=== PATIENT | female | born 1965 | race American Indian/Alaskan Native ===

== ENCOUNTER 2018-07-27 10:10 | Inpatient (IN) | payer MEDICAID ==
[2018-07-27] MEDS ORDERED: Morphine 4 mg/ml ISec IVP STA ×2 (10:32→12:48)
--- NOTE | 2018-07-27 10:36 | ED PDOC ---
Arrival/HPI - General Chief Complaint: Abdominal Pain Time Seen by Provider: 07/27/18 10:11 Historian: Patient - History of Present Illness Narrative History of Present Illness (Text): 07/27/18 10:31 53 year old female, whose past medical history includes pancreas divisum, tubal ligation, cyst removal, and stent placement on pancreas, presents to the emergency department complaining of constant right upper abdominal pain assoc iated with nausea, vomiting, and diarrhea for the past week. Patient also reports she lost a lot of weight, but denies any fever, chills, chest pain, shortness of breath, urinary symptoms, back pain, neck pain, headache, dizziness, or any other complaints. PMD or GI: None Time/Duration: 1 week Symptom Onset: Sudden Symptom Course: Unchanged Activities at Onset: Light Context: Home Past Medical History - Provider Review Nursing Documentation Reviewed: Yes - Reproductive Menopause: Yes - Cardiac Hx Hypertension: Yes - Gastrointestinal Other/Comment: pancreatic divisum - Psychiatric Hx Substance Use: No - Surgical History Other/Comment: Ovarian cyst removal Family/Social History - Physician Review Nursing Documentation Reviewed: Yes Family/Social History: No Known Family HX Smoking Status: Light Smoker < 10 Cigarettes Daily Hx Alcohol Use: No Hx Substance Use: No Allergies/Home Meds Allergies/Adverse Reactions: Allergies acetaminophen [From Tylenol] Allergy (Verified 07/27/18 10:20) ANAPHYLAXIS NSAIDS (Non-Steroidal Anti-Inflamma Allergy (Verified 07/27/18 10:20) ANGIOEDEMA Home Medications: Home Meds Medication Instructions Recorded Confirmed RX: Lisinopril [Zestril] 20 mg PO DAILY 07/27/18 07/27/18 Review of Systems - Physician Review All systems were reviewed & negative as marked: Yes - Review of Systems Constitutional: Weight Change. absent: Fevers, Other (Chills) Respiratory: absent: SOB Cardiovascular: absent: Chest Pain Gastrointestinal: Abdominal Pain, Diarrhea, Nausea, Vomiting Genitourinary Female: absent: Dysuria, Frequency, Hematuria Musculoskeletal: absent: Back Pain, Neck Pain Neurological: absent: Headache, Dizziness Physical Exam - Physical Exam Narrative Physical Exam (Text): Gen: VS reviewed, alert, well developed, well nourished, nontoxic, mild distress. ENT: normal pharynx. Eye: EOMI, PERRL. Neck: no JVD, supple, no adenopathy. CV: regular rate, regular rhythm, no rubs, no murmur, no gallops, S1, S2, pulses equal and strong. Pulm: no distress, clear to auscultation, no wheeze, no rhonchi, breath sounds equal, no rales. Abd: mild to moderate RUQ tenderness with some guarding, no rebound, no rigidity, normal bowel sounds. Ext: no edema. Skin: good color, no rash, no cyanosis. Psych: responds appropriately to questions, normal affect. Neuro: oriented x 3, CN2-12 intact grossly, motor intact, sensation intact. Vital Signs Reviewed: Yes Vital Signs Temp Pulse Resp BP Pulse Ox 07/27/18 10:18 97.7 F 76 18 163/113 H 98 Temperature: Afebrile Blood Pressure: Hypertensive Pulse: Regular Respiratory Rate: Normal Medical Decision Making ED Course and Treatment: 07/27/18 10:35 Impression: 53 year old female presents complaining of right upper quadrant abdominal pain associated with nausea, vomiting, and diarrhea for the past week. Plan: -- CT Abdomen and pelvis PO and IV Contrast -- EKG -- Labs -- Morphine, IV Fludis, Zofran Inj -- Reassess and disposition Progress Notes: 07/27/18 14:[address] Duran who is aware and agrees with the plan. Accepts patient into hospitalist service for continued abdominal pain and work up for potential pancreatic obstruction of stent. - Lab Interpretations I have reviewed the lab results: Yes - RAD Interpretation Narrative RAD Interpretations (Text): PROCEDURE: CT Abdomen and Pelvis with contrast Dictator : Elena Marquez MD Report Date : 07/27/2018 14:19:52 IMPRESSION: Mild intrahepatic biliary ductal dilatation. Moderate dilatation of the common bile duct and pancreatic duct. No bulky pancreatic head or periampullary mass. Scattered punctate pancreatic calcifications likely related to chronic pancreatitis. Scattered colonic diverticulosis. Apparent mild mural thickening of the left hemicolon is nonspecific and could be related to underdistention however acute nonspecific infectious/inflammatory colitis is also a consideration. Clinical follow-up is advised. No bowel dilatation or obstruction. Mild hepatomegaly and fatty liver. No cholelithiasis. Maintenance Analyst: Radiologist - EKG Interpretation EKG Interpretation (Text): 07/27/18 10:38 NSR @ 78 bpm, nml qrs, nml axis, no acute sttw abn. Interpreted by ED Physician: Yes Type: 12 lead EKG - Scribe Statement The provider has reviewed the documentation as recorded by the Swapnilibe Miley Merida Provider Scribe Attestation: All medical record entries made by the Scribe were at my direction and personally dictated by me. I have reviewed the chart and agree that the record accurately reflects my personal performance of the history, physical exam, medical decision making, and the department course for this patient. I have also personally directed, reviewed, and agree with the discharge instructions and disposition. Disposition/Present on Arrival - Present on Arrival Any Indicators Present on Arrival: No History of DVT/PE: No History of Uncontrolled Diabetes: No Urinary Catheter: No History of Decub. Ulcer: No History Surgical Site Infection Following: None - Disposition Have Diagnosis and Disposition been Completed?: Yes Diagnosis: Abdominal pain, Presence of pancreatic duct stent Disposition: HOSPITALIZED Disposition Time: 14:40 Patient Plan: Admission Patient Problems: Current Active Problems Problem Status Onset Abdominal pain Acute Presence of pancreatic duct stent Acute Condition: STABLE
[2018-07-27] MEDS: Sodium Chloride 0.9% 1,000 ML IV SCH ×3 (10:51→23:31)
[2018-07-27] MEDS ORDERED: Iohexol 240 (50 ml) ONE (11:24)
[2018-07-27 11:56] LABS: ALB/GLOB RATIO 1.2 (1.1-1.8); ALBUMIN 4.6 g/dL (3.0-4.8); ALT/SGPT 19 U/L (7-56); AST/SGOT 21 U/L (14-36); BASO # 0.04 K/mm3 (0.0-2.0); BASO % 0.7 % (0.0-3.0); BLOOD UREA NITROGEN 8 mg/dL (7-21); CALCIUM 9.8 mg/dL (8.4-10.5); EOS # 0.1 (0.0-0.7); EOS % 2.3 % (1.5-5.0); GFR NON-AFRICAN AMERICAN > 60; GRAN # 3.2 (1.4-6.5); GRAN % 56.4 % (50.0-68.0); HEMOGLOBIN 14.2 g/dL (12.0-16.0); LIPASE 130 U/L (23-300); LYMPH # 2.1 (1.2-3.4); LYMPH % 36.6 % (22.0-35.0); MEAN CELL VOLUME 89.8 fl (80.0-105.0); MEAN CORPUSCULAR HEMOGLOBIN 30.1 pg (25.0-35.0); MEAN CORPUSCULAR HGB CONC 33.6 g/dl (31.0-37.0); MEAN PLATELET VOLUME 10.7 fl (7.0-11.0); MONO # 0.2 (0.1-0.6); RBC 4.71 10^6/uL (3.5-6.1); RED CELL DISTRIBUTION WIDTH 13.1 % (11.5-14.5); WHITE BLOOD COUNT 5.7 10^3/uL (4.5-11.0)
[2018-07-27 12:07] LABS: TROPONIN I < 0.01 ng/mL
[2018-07-27] MEDS ORDERED: Iohexol 350 MG/100 ML VIAL ONE (13:50)
--- NOTE | 2018-07-27 14:23 | CT ---
Date of service: 07/27/2018 PROCEDURE: CT Abdomen and Pelvis with contrast HISTORY: RUQ pain, hx pancreatic stent COMPARISON: None available. TECHNIQUE: CT scan of the abdomen and pelvis was performed after administration of intravenous contrast. Oral contrast was administered. Coronal and sagittal reformatted images were obtained. Contrast dose: 100 mL Omnipaque 350 Radiation dose: Total exam DLP = 332.46 mGy-cm. This CT exam was performed using one or more of the following dose reduction techniques: Automated exposure control, adjustment of the mA and/or kV according to patient size, and/or use of iterative reconstruction technique. FINDINGS: LOWER THORAX: The visualized lungs are clear. LIVER: Mild hepatomegaly and fatty liver. No gross lesion. There is mild intrahepatic ductal dilatation. GALLBLADDER AND BILE DUCTS: Well distended. No calcified gallstones, wall thickening or pericholecystic fluid. There is mild dilatation of the common bile duct which measures 6 mm in diameter. PANCREAS: Normal in size with homogeneous enhancement. No gross lesion. There is diffuse dilatation of the pancreatic duct which measures 7 mm in diameter. There are scattered punctate pancreatic calcifications. SPLEEN: Normal in size and appearance. ADRENALS: No discrete nodule. KIDNEYS AND URETERS: Normal in size with homogeneous enhancement. No hydronephrosis. No solid mass. VASCULATURE: No aortic aneurysm. Aortic atherosclerotic calcifications are present. BOWEL: Evaluation of the bowel is limited in the absence of oral contrast. The small bowel loops are normal in caliber. There is scattered colonic diverticulosis. There is apparent mild mural thickening of the left hemicolon. No bowel dilatation or obstruction. No bowel wall thickening or obstruction. APPENDIX: Normal appendix. PERITONEUM: No free fluid. No free air. LYMPH NODES: No enlarged lymph nodes. BLADDER: Well distended and normal in appearance. REPRODUCTIVE: The uterus is normal in size. BONES: No acute fracture. Within normal limits for the patient's age. OTHER FINDINGS: None. IMPRESSION: Mild intrahepatic biliary ductal dilatation. Moderate dilatation of the common bile duct and pancreatic duct. No bulky pancreatic head or periampullary mass. Scattered punctate pancreatic calcifications likely related to chronic pancreatitis. Scattered colonic diverticulosis. Apparent mild mural thickening of the left hemicolon is nonspecific and could be related to underdistention however acute nonspecific infectious/inflammatory colitis is also a consideration. Clinical follow-up is advised. No bowel dilatation or obstruction. Mild hepatomegaly and fatty liver. No cholelithiasis.
[2018-07-27] MEDS ORDERED: Potassium Chloride 20 mEq ER Tab PO ONE (14:59)
--- NOTE | 2018-07-27 15:04 | CP.PCM.HP ---
<Juventino Scruggs - Last Filed: 07/27/18 16:25> History of Present Illness - History of Present Illness History of Present Illness: Juventino Scruggs, H&P for Dr. Catherine cc: n/v/d with abdominal pain x1 week duration Patient is a 53 year old female with PMHx of HTN, pancreatic divisum with pancreatic stent placement in 2004, tubal ligation, R-ovarian cyst removal, GI bleed, presented to the ED complaining of constant RUQ abdominal pain associated with nausea, vomiting, and diarrhea for the past week. In the ED, Vitals: T 97.7, HR 70, BP 163/113 RR 18 SaO2 98% (room air). Patient given morphine for pa in control, started on IV fluids, and given zofran for nausea. Patient's labs were unremarkable except for K 3.4. Troponins negative x1. Lipase negative. CT abdomen ordered. EKG showed NSR at [address] or T wave changes. Patient examined by the medical team. Patient last vomited yesterday, it was yellow in color. Diarrhea is 2-3 times a day. It is associated with abdominal pain x1 week duration. Pain is epigastric, RUQ, that radiates to the back. Denies fever, chills, chest pain, shortness of breath, urinary symptoms, back pain, neck pain, headache, dizziness, F/U/D. Denies sick contacts and recent travel hx. Patient said she was previously admitted to a hospital in [place], [place] or [facility] (patient does not remember) for similar complains approximately one month ago and was discharged after one day. A full 12 point ROS was conducted and unremarkable except as stated above. PMHx: pancreatic divisum with pancreatic stent placement in 2004, tubal ligation, R-ovarian cyst removal, GI bleed PSHx: pancreatic stent placement (2004), R-ovarian cyst removal SocialHx: light smoker, no EtOH, no rec drug use. Lives with nephew in [place]. Meds: Lisinopril Allergies: ASA and Tylenol FamHx: sister has breast and ovarian cancer, mother has HTN and DM, father has no medical hx. Present on Admission - Present on Admission Any Indicators Present on Admission: No History of DVT/PE: No History of Uncontrolled Diabetes: No Urinary Catheter: No Decubitus Ulcer Present: No Review of Systems - Review of Systems All systems: reviewed and no additional remarkable complaints except (as per HPI.) Past Patient History - Past Social History Smoking Status: Light Smoker < 10 Cigarettes Daily - CARDIAC Hx Hypertension: Yes - GASTROINTESTINAL Other/Comment: pancreatic divisum - PSYCHIATRIC Hx Substance Use: No - SURGICAL HISTORY Other/Comment: Ovarian cyst removal Meds Allergies/Adverse Reactions: Allergies Allergy/AdvReac Type Severity Reaction Status Date / Time acetaminophen [From Tylenol] Allergy ANAPHYLAXIS Verified 07/27/18 10:20 NSAIDS (Non-Steroidal Allergy ANGIOEDEMA Verified 07/27/18 10:20 Anti-Inflamma Physical Exam - Constitutional Appears: No Acute Distress - Head Exam Head Exam: ATRAUMATIC, NORMAL INSPECTION, NORMOCEPHALIC - Eye Exam Eye Exam: EOMI, Normal appearance, PERRL - ENT Exam ENT Exam: Mucous Membranes Moist, Normal Exam - Respiratory Exam Respiratory Exam: Clear to Auscultation Bilateral, NORMAL BREATHING PATTERN. absent: Rales, Rhonchi, Wheezes, Respiratory Distress - Cardiovascular Exam Cardiovascular Exam: REGULAR RHYTHM, +S1, +S2 - GI/Abdominal Exam GI & Abdominal Exam: Normal Bowel Sounds, Soft, Tenderness (Tender to deep palpation at epigastric and RUQ that radiates to back). absent: Firm, Guarding, Rebound, Rigid - Extremities Exam Extremities exam: Positive for: normal inspection, pedal pulses present. Negative for: tenderness - Skin Skin Exam: Dry, Intact, Normal Color, Warm Results - Vital Signs Recent Vital Signs: Last Vital Signs Temp 97.7 F 07/27/18 10:18 Pulse 69 07/27/18 12:48 Resp 17 07/27/18 12:48 BP 160/90 H 07/27/18 12:48 Pulse Ox 100 07/27/18 12:48 - Labs Result Diagrams: 07/27/18 11:00 07/27/18 11:00 Labs: Laboratory Results - last 24 hr 07/27/18 07/27/18 11:00 11:00 WBC 5.7 RBC 4.71 Hgb 14.2 Hct 42.3 MCV 89.8 MCH 30.1 MCHC 33.6 RDW 13.1 Plt Count 201 MPV 10.7 Gran % 56.4 Lymph % (Auto) 36.6 H [place] % (Auto) 4.0 Eos % (Auto) 2.3 Baso % (Auto) 0.7 Gran # 3.20 Lymph # (Auto) 2.1 [place] # (Auto) 0.2 Eos # (Auto) 0.1 Baso # (Auto) 0.04 Sodium 146 Potassium 3.4 L Chloride 111 H Carbon Dioxide 25 Anion Gap 13 BUN 8 Creatinine 0.6 L Est GFR ( Amer) > 60 Est GFR (Non-Af Amer) > 60 Random Glucose 88 Calcium 9.8 Total Bilirubin 0.3 AST 21 ALT 19 Alkaline Phosphatase 112 Troponin I < 0.01 Total Protein 8.5 H Albumin 4.6 Globulin 3.9 Albumin/Globulin Ratio 1.2 Lipase 130 Assessment & Plan - Assessment and Plan (Free Text) Assessment: Patient is a 53 year old female with PMHx of HTN, pancreatic divisum with pancreatic stent placement in 2004, tubal ligation, R-ovarian cyst removal, GI bleed, presented to the ED complaining of constant epigastric and RUQ abdominal pain associated with nausea, vomiting, and diarrhea for the past week. Patient will be evaluated by the medical team. Plan: Epigastric/RUQ abdominal pain with associated n/v/d with Hx of Pancreatic Divisum with stent placement - Protonix 40mg IVP daily - EtOH level - Urine drug screen - zofran prn - liquid diet - morphine 1 mg q6 prn - Lipase negative - CT A/P PO and IV Contrast: Mild intrahepatic biliary ductal dilatation. Moderate dilatation of the common bile duct and pancreatic duct. Scattered pancreatic calcifications likely related to chronic pancreatitis. No bowel dilatation or obstruction. No cholelithiasis. - GI consulted (Dr. Mullins), f/u recs. - Hx of pancreatic divisum with stent placement in 2004 Hypokalemia 2/2 vomiting/diarrhea - K 3.4 - repleted - monitor - trop negative x1 Hx of HTN - restarted home med Lisinopril 20 mg PO daily - BP elevated in ED - monitor GI ppx: PTX DVT ppx: SCD Dispo: monitor patient on the floor. Follow up recommendations from GI. Case was discussed and reviewed with Dr. Catherine. <Jonathan Catherine - Last Filed: 07/27/18 17:13> Results - Vital Signs Recent Vital Signs: Last Vital Signs Temp 97.7 F 07/27/18 10:18 Pulse 65 07/27/18 15:30 Resp 18 07/27/18 15:30 BP 152/85 H 07/27/18 15:30 Pulse Ox 100 07/27/18 15:30 - Labs Result Diagrams: 07/27/18 11:00 07/27/18 11:00 Labs: Laboratory Results - last 24 hr 07/27/18 07/27/18 07/27/18 11:00 11:00 11:00 WBC 5.7 RBC 4.71 Hgb 14.2 Hct 42.3 MCV 89.8 MCH 30.1 MCHC 33.6 RDW 13.1 Plt Count 201 MPV 10.7 Gran % 56.4 Lymph % (Auto) 36.6 H [place] % (Auto) 4.0 Eos % (Auto) 2.3 Baso % (Auto) 0.7 Gran # 3.20 Lymph # (Auto) 2.1 [place] # (Auto) 0.2 Eos # (Auto) 0.1 Baso # (Auto) 0.04 Sodium 146 Potassium 3.4 L Chloride 111 H Carbon Dioxide 25 Anion Gap 13 BUN 8 Creatinine 0.6 L Est GFR ( Amer) > 60 Est GFR (Non-Af Amer) > 60 Random Glucose 88 Calcium 9.8 Phosphorus 3.7 Magnesium 2.4 H Total Bilirubin 0.3 AST 21 ALT 19 Alkaline Phosphatase 112 Troponin I < 0.01 Total Protein 8.5 H Albumin 4.6 Globulin 3.9 Albumin/Globulin Ratio 1.2 Lipase 130 Alcohol, Quantitative 07/27/18 11:00 WBC RBC Hgb Hct MCV MCH MCHC RDW Plt Count MPV Gran % Lymph % (Auto) [place] % (Auto) Eos % (Auto) Baso % (Auto) Gran # Lymph # (Auto) [place] # (Auto) Eos # (Auto) Baso # (Auto) Sodium Potassium Chloride Carbon Dioxide Anion Gap BUN Creatinine Est GFR ( Amer) Est GFR (Non-Af Amer) Random Glucose Calcium Phosphorus Magnesium Total Bilirubin AST ALT Alkaline Phosphatase Troponin I Total Protein Albumin Globulin Albumin/Globulin Ratio Lipase Alcohol, Quantitative < 10 Attending/Attestation - Attestation I have personally seen and examined this patient.: Yes I have fully participated in the care of the patient.: Yes I have reviewed all pertinent clinical information: Yes Notes (Text): 07/27/18 16:38 53 year old female with past medical history of hypertension and pancreatic divisum s/p pancreatic stent (2004) who presents with complaint of epigastric- RUQ pain and nausea/vomiting/diarrhea. CT abd/pelvis shows mild intrahepatic biliary ductal dilatation, moderate dilatation of the common bile duct and pancreatic duct; scattered pancreatic calcifications likely related to chronic pancreatitis, no cholelithiasis. LFTs and lipase are normal. Will start on liquid diet as tolerated. GI evaluation is requested. Will replete and repeat potassium. Jonathan Catherine MD Hospitalist.
[2018-07-27] MEDS ORDERED: Morphine 2 mg/ml ISec IVP STA (16:00)
[2018-07-27] MEDS ORDERED: Morphine 5 MG/ML SYRINGE IVP PRN (16:10)
[2018-07-27 16:49] LABS: BARBITURATES, UR NEGATIVE (NEGATIVE); BENZODIAZEPINES, UR NEGATIVE (NEGATIVE); OPIATES, UR POSITIVE (NEGATIVE); PHENCYCLIDINE, UR NEGATIVE (NEGATIVE)
[2018-07-27 18:11] VITALS: BMI 26.4
--- NOTE | 2018-07-27 20:24 | CARD ---
APPROVED REPORT Date of service: 07/27/2018 EKG Measurement Heart [id number] <Conclusion> Normal sinus rhythm with sinus arrhythmia Normal ECG
[2018-07-27] MEDS: Morphine 2 mg/ml ISec IVP PRN (23:31)
[2018-07-28] MEDS: Sodium Chloride 0.9% 1,000 ML IV SCH ×2 (00:30→14:42)
[2018-07-28] MEDS: Morphine 2 mg/ml ISec IVP PRN ×3 (06:25→18:13)
[2018-07-28 07:01] LABS: BASO # 0.04 K/mm3 (0.0-2.0); BASO % 0.8 % (0.0-3.0); EOS # 0.2 (0.0-0.7); EOS % 3.9 % (1.5-5.0); GRAN # 2.02 (1.4-6.5); GRAN % 40.9 % (50.0-68.0); HEMOGLOBIN 12.6 g/dL (12.0-16.0); LYMPH # 2.3 (1.2-3.4); LYMPH % 47.3 % (22.0-35.0); MEAN CELL VOLUME 89.4 fl (80.0-105.0); MEAN CORPUSCULAR HEMOGLOBIN 29.8 pg (25.0-35.0); MEAN CORPUSCULAR HGB CONC 33.3 g/dl (31.0-37.0); MEAN PLATELET VOLUME 10.7 fl (7.0-11.0); MONO # 0.4 (0.1-0.6); MONO % 7.1 % (1.0-6.0); RBC 4.23 10^6/uL (3.5-6.1); RED CELL DISTRIBUTION WIDTH 13.3 % (11.5-14.5); WHITE BLOOD COUNT 4.9 10^3/uL (4.5-11.0)
[2018-07-28 07:16] LABS: ALB/GLOB RATIO 1.2 (1.1-1.8); ALBUMIN 3.5 g/dL (3.0-4.8); ALT/SGPT 23 U/L (7-56); AST/SGOT 29 U/L (14-36); BLOOD UREA NITROGEN 6 mg/dL (7-21); CALCIUM 8.9 mg/dL (8.4-10.5); GFR NON-AFRICAN AMERICAN > 60
--- NOTE | 2018-07-28 12:10 | CP.PCM.CON ---
<Jorge Parra - Last Filed: 07/28/18 12:06> History of Present Illness - History of Present Illness History of Present Illness: PGY6 GI Fellow Consult Note Patient is a 53yo female with PMHx significant for pancreas divisum, recurrent pancreatitis/chronic pancreatitis, HTN who presented to the ED with one month of intermittent severe epigastric pain. Patient is a poor historian. Patient admits that issues related to her pancreas have been ongoing for 10-20 years. Initially, she had stabbing epigastric pain radiating to her back and was told by a physician that she had pancreas divisum. She has had inadequate and fragmented follow up in the two decades that have passed with [place] providers [place]. At some point, patient states she had ERCP with stent placement but cannot recall the details of this procedure or circumstances preceding it. Currently, she states over the last 1-2 months she has had worsening of symptoms with post-prandial discomfort, nausea, vomiting and watery stool with meals. She has never been on pancreatic enzyme supplementation. She admits to recent hospitalization out of state but cannot recall the details surrounding this either and was discharged after 24 hours. Currently, she continues to have intermittent stabbing pain, worse with movement and palpation of the area. Denies any weight loss, hematochezia, melena. Admits to frequent constipation outside of episodes of diarrhea, only passing stool 1-2 times per week when diarrheal symptoms are not present. 12 system ROS performed and negative except where stated PMHx: See HPI PSHx: right ovarian cyst, tubal ligation FHx: Sister - breast/ovarian cancer; Mother - DM, HTN Social: Active tobacco use (09/20 - 09/18 ppd), denies EtOH or illicit drug use Endo: Unknown prior examinations - none available for review Past Patient History - Past Social History Smoking Status: Current Some Days Smoker - CARDIAC Hx Cardiac Disorders: No Hx Hypertension: Yes - PULMONARY Hx Respiratory Disorders: No Hx Asthma: No Hx Bronchitis: No Hx Chronic Obstructive Pulmonary Disease (COPD): No Hx Emphysema: No Hx Pneumonia: No Hx Respiratory Aspiration: No Hx Respiratory Tract Infection: No Hx Sleep Apnea: No Hx Tuberculosis: No - MUSCULOSKELETAL/RHEUMATOLOGICAL Hx Falls: No - GASTROINTESTINAL Hx Pancreatitis: Yes (CHRONIC) Other/Comment: pancreatic divisum W STENTS - PSYCHIATRIC Hx Substance Use: No - SURGICAL HISTORY Other/Comment: Ovarian cyst removal, TUBAL LIGATION Meds Allergies/Adverse Reactions: Allergies Allergy/AdvReac Type Severity Reaction Status Date / Time acetaminophen [From Tylenol] Allergy ANAPHYLAXIS Verified 07/27/18 10:20 NSAIDS (Non-Steroidal Allergy ANGIOEDEMA Verified 07/27/18 10:20 Anti-Inflamma - Medications Medications: Current Medications Sodium Chloride (Sodium Chloride 0.9%) 1,000 mls @ 75 mls/hr IV .[id number] [facility] Last Admin: 07/28/18 00:30 Dose: 75 mls/hr Lisinopril (Zestril) 30 mg PO DAILY [facility] Morphine Sulfate (Morphine) 1 mg IVP Q6H PRN PRN Reason: Pain, moderate (4-7) Last Admin: 07/28/18 06:25 Dose: 1 mg Ondansetron HCl (Zofran Inj) 4 mg IVP Q4H PRN PRN Reason: Nausea/Vomiting Pantoprazole Sodium (Protonix Inj) 40 mg IVP DAILY [facility] Last Admin: 07/28/18 11:02 Dose: 40 mg Physical Exam - Constitutional Appears: Non-toxic, No Acute Distress - Eye Exam Eye Exam: EOMI, PERRL - ENT Exam ENT Exam: Mucous Membranes Moist - Respiratory Exam Respiratory Exam: Clear to Auscultation Bilateral. absent: Rales, Rhonchi, Wheezes - Cardiovascular Exam Cardiovascular Exam: RRR, +S1, +S2 - GI/Abdominal Exam GI & Abdominal Exam: Guarding, Normal Bowel Sounds, Soft, Tenderness (epigastric). absent: Distended, Firm, Organomegaly, Rigid - Extremities Exam Extremities exam: Positive for: normal inspection. Negative for: pedal edema - Neurological Exam Neurological exam: Alert, Oriented x3 - Psychiatric Exam Psychiatric exam: Normal Affect, Normal Mood - Skin Skin Exam: Dry, Warm Results - Vital Signs Recent Vital Signs: Last Vital Signs Temp 97.8 F 07/28/18 06:00 Pulse 61 07/28/18 08:40 Resp 18 07/28/18 06:00 BP 160/105 H 07/28/18 08:40 Pulse Ox 98 07/28/18 06:00 - Labs Result Diagrams: 07/28/18 06:00 07/28/18 06:00 Labs: Laboratory Results - last 24 hr 07/27/18 07/27/18 07/27/18 11:00 11:00 11:00 WBC RBC Hgb Hct MCV MCH MCHC RDW Plt Count MPV Gran % Lymph % (Auto) [place] % (Auto) Eos % (Auto) Baso % (Auto) Gran # Lymph # (Auto) [place] # (Auto) Eos # (Auto) Baso # (Auto) Sodium Potassium Chloride Carbon Dioxide Anion Gap BUN Creatinine Est GFR ( Amer) Est GFR (Non-Af Amer) Random Glucose Calcium Phosphorus 3.7 Magnesium 2.4 H Total Bilirubin AST ALT Alkaline Phosphatase Troponin I < 0.01 Total Protein Albumin Globulin Albumin/Globulin Ratio Urine Opiates Screen Positive H Urine Methadone Screen Negative Ur Barbiturates Screen Negative Ur Phencyclidine Scrn Negative Ur Amphetamines Screen Negative U Benzodiazepines Scrn Negative U Oth Cocaine Metabols Negative U Cannabinoids Screen Negative Alcohol, Quantitative 07/27/18 07/28/18 07/28/18 11:00 06:00 06:00 WBC 4.9 RBC 4.23 Hgb 12.6 Hct 37.8 MCV 89.4 MCH 29.8 MCHC 33.3 RDW 13.3 Plt Count 176 MPV 10.7 Gran % 40.9 L Lymph % (Auto) 47.3 H [place] % (Auto) 7.1 H Eos % (Auto) 3.9 Baso % (Auto) 0.8 Gran # 2.02 Lymph # (Auto) 2.3 [place] # (Auto) 0.4 Eos # (Auto) 0.2 Baso # (Auto) 0.04 Sodium 143 Potassium 3.7 Chloride 111 H Carbon Dioxide 25 Anion Gap 10 BUN 6 L Creatinine 0.7 Est GFR ( Amer) > 60 Est GFR (Non-Af Amer) > 60 Random Glucose 91 Calcium 8.9 Phosphorus Magnesium Total Bilirubin 0.3 AST 29 ALT 23 Alkaline Phosphatase 92 Troponin I Total Protein 6.4 Albumin 3.5 Globulin 3.0 Albumin/Globulin Ratio 1.2 Urine Opiates Screen Urine Methadone Screen Ur Barbiturates Screen Ur Phencyclidine Scrn Ur Amphetamines Screen U Benzodiazepines Scrn U Oth Cocaine Metabols U Cannabinoids Screen Alcohol, Quantitative < 10 Assessment & Plan - Assessment and Plan (Free Text) Assessment: Patient is a 53yo female with PMHx significant for pancreas divisum, recurrent pancreatitis/chronic pancreatitis, HTN who presented to the ED with one month of intermittent severe epigastric pain -Abdominal pain, chronic pancreatitis suspected -Diarrhea - possible 2/2 pancreatic insufficiency, rule out infectious etio logies -Tobacco abuse/dependence Plan: -Recommend further evaluation of the biliary tree and pancreas with MRI and MRCP abdomen w/ w/o contrast; ? history of pancreas divisum -Check autoimmune markers - ALEX, AMA, IgG subclass 4, IgG level, IgM level -Educated on importance of smoking cessation -Pantoprazole 40mg PO QAM -Initiate pancreatic enzymes with meals (500 units Lipase/kg) -Pain management per primary service -Diet as tolerated - goal low fat diet -Will monitor clinical progress - Date & Time Date: 07/28/18 Time: 08:00 <Xi Mullins V - Last Filed: 07/28/18 23:56> Meds - Medications Medications: Current Medications Amylase (Pancrease 61002 U-5000 U-01484 U) 35,000 unit PO AC [facility] Last Admin: 07/28/18 18:11 Dose: 35,000 unit Sodium Chloride (Sodium Chloride 0.9%) 1,000 mls @ 75 mls/hr IV .[id number] [facility] Last Admin: 07/28/18 14:42 Dose: 75 mls/hr Lisinopril (Zestril) 30 mg PO DAILY [facility] Morphine Sulfate (Morphine) 1 mg IVP Q6H PRN PRN Reason: Pain, moderate (4-7) Last Admin: 07/28/18 18:13 Dose: 1 mg Ondansetron HCl (Zofran Inj) 4 mg IVP Q4H PRN PRN Reason: Nausea/Vomiting Pantoprazole Sodium (Protonix Ec Tab) 40 mg PO 0600 [facility] Results - Vital Signs Recent Vital Signs: Last Vital Signs Temp 97.7 F 07/28/18 22:00 Pulse 60 07/28/18 22:00 Resp 20 07/28/18 22:00 BP 153/87 H 07/28/18 22:00 Pulse Ox 99 07/28/18 22:00 - Labs Result Diagrams: 07/28/18 06:00 07/28/18 06:00 Labs: Laboratory Results - last 24 hr 07/28/18 07/28/18 07/28/18 06:00 06:00 06:00 WBC 4.9 RBC 4.23 Hgb 12.6 Hct 37.8 MCV 89.4 MCH 29.8 MCHC 33.3 RDW 13.3 Plt Count 176 MPV 10.7 Gran % 40.9 L Lymph % (Auto) 47.3 H [place] % (Auto) 7.1 H Eos % (Auto) 3.9 Baso % (Auto) 0.8 Gran # 2.02 Lymph # (Auto) 2.3 [place] # (Auto) 0.4 Eos # (Auto) 0.2 Baso # (Auto) 0.04 Sodium 143 Potassium 3.7 Chloride 111 H Carbon Dioxide 25 Anion Gap 10 BUN 6 L Creatinine 0.7 Est GFR ( Amer) > 60 Est GFR (Non-Af Amer) > 60 Random Glucose 91 Calcium 8.9 Total Bilirubin 0.3 AST 29 ALT 23 Alkaline Phosphatase 92 Total Protein 6.4 Albumin 3.5 Globulin 3.0 Albumin/Globulin Ratio 1.2 IgG 892.9 IgM 279.6 H Attending/Attestation - Attestation I have personally seen and examined this patient.: Yes I have fully participated in the care of the patient.: Yes I have reviewed all pertinent clinical information: Yes Notes (Text): p 07/28/18 23:56
--- NOTE | 2018-07-28 14:03 | CP.PCM.PN ---
<Juventino Scruggs - Last Filed: 07/28/18 13:59> Subjective - Date & Time of Evaluation Date of Evaluation: 07/28/18 Time of Evaluation: 07:00 - Subjective Subjective: Juventino Scruggs PGY1 Medicine Progress Note for Dr. Catherine Patient was seen and examined at bedside this morning. She still complains of abdominal pain. However, she denies n/v/d. Patient's BP noted to be 160/105 today. Patient denies cp, sob, fevers, chills, numbness and tingling. No overnight changes. A full 12 point ROS was conducted and unremarkable except as stated above. Objective - Vital Signs/Intake and Output Vital Signs (last 24 hours): Temp Pulse Resp BP Pulse Ox 97.8 F 61 18 160/105 H 98 07/28/18 06:00 07/28/18 08:40 07/28/18 06:00 07/28/18 08:40 07/28/18 06:00 Intake and Output: 07/28/18 07/28/18 06:59 18:59 Intake Total 1345 Balance 1345 - Medications Medications: Current Medications Amylase (Pancrease 93211 U-5000 U-03267 U) 35,000 unit PO AC [facility] Sodium Chloride (Sodium Chloride 0.9%) 1,000 mls @ 75 mls/hr IV .[id number] [facility] Last Admin: 07/28/18 00:30 Dose: 75 mls/hr Lisinopril (Zestril) 30 mg PO DAILY [facility] Morphine Sulfate (Morphine) 1 mg IVP Q6H PRN PRN Reason: Pain, moderate (4-7) Last Admin: 07/28/18 12:25 Dose: 1 mg Ondansetron HCl (Zofran Inj) 4 mg IVP Q4H PRN PRN Reason: Nausea/Vomiting Pantoprazole Sodium (Protonix Ec Tab) 40 mg PO 0600 [facility] - Labs Labs: 07/28/18 06:00 07/28/18 06:00 - Constitutional Appears: No Acute Distress - Head Exam Head Exam: ATRAUMATIC, NORMAL INSPECTION, NORMOCEPHALIC - Eye Exam Eye Exam: EOMI, Normal appearance, PERRL Pupil Exam: NORMAL ACCOMODATION, PERRL - ENT Exam ENT Exam: Mucous Membranes Moist, Normal Exam - Respiratory Exam Respiratory Exam: Clear to Ausculation Bilateral, NORMAL BREATHING PATTERN. absent: Rales, Rhonchi, Wheezes - Cardiovascular Exam Cardiovascular Exam: REGULAR RHYTHM, +S1, +S2. absent: Murmur - GI/Abdominal Exam GI & Abdominal Exam: Soft, Tenderness (Tenderness to palpation of the epigastric and RUQ abdomen ). absent: Guarding, Rigid, Mass, Organomegaly - Extremities Exam Extremities Exam: Full ROM, Normal Capillary Refill, Normal Inspection. absent: Joint Swelling, Pedal Edema - Back Exam Back Exam: NORMAL INSPECTION - Neurological Exam Neurological Exam: Alert, Awake, Oriented x3 Neuro motor strength exam: Left Upper Extremity: 5, Right Upper Extremity: 5, Left Lower Extremity: 5, Right Lower Extremity: 5 - Psychiatric Exam Psychiatric exam: Normal Affect, Normal Mood - Skin Skin Exam: Dry, Intact, Normal Color, Warm Assessment and Plan - Assessment and Plan (Free Text) Assessment: Patient is a 53 year old female with PMHx of HTN, pancreatic divisum with pancreatic stent placement in 2004, tubal ligation, R-ovarian cyst removal, GI bleed, presented to the ED complaining of constant epigastric and RUQ abdominal pain associated with nausea, vomiting, and diarrhea for the past week likely due to chronic pancreatitis. Patient was evaluated by the medical team. GI was consulted. Plan: Epigastric/RUQ abdominal pain with associated n/v/d due to chronic pancreatitis with hx of pancreatic divisum - GI recommendations appreciated. Recommend MRCP of abdomen w/ and w/o contrast. Immune markers ordered. Pantoprazole 40mg PO qAM. Pancreatic enzymes with meals. Diet as tolerated. - f/u MRCP abdomen w/ and w/o contrast - c/w morphine 1 mg q6 prn for pain control - c/w zofran 4mg IVP q4 prn for nausea - Urine drug screen is +opiates; EtOH level negative - liquid diet; advance as tolerated - Lipase negative - CT A/P PO and IV Contrast: Mild intrahepatic biliary ductal dilatation. Moderate dilatation of the common bile duct and pancreatic duct. Scattered pancreatic calcifications likely related to chronic pancreatitis. No bowel dilatation or obstruction. No cholelithiasis. - GI consulted (Dr. Mullins), recommendations appreciated. - Hx of questionable pancreatic divisum with stent placement in 2004 Hx of HTN - BP noted to be 160/105 today on home dose of Lisinopril 20mg PO daily - Adjusted to Lisinopril 30mg PO daily - Asymptomatic; no complaints of cp or palpitations - monitor BP Hypokalemia 2/2 vomiting/diarrhea - resolved - K is 3.7 today - K 3.4 on admission; repleted GI ppx: PTX DVT ppx: SCD Dispo: monitor patient on the floor. Follow up MRCP abdomen results as per GI recs. Case was discussed and reviewed with Attending Physician, Dr. Catherine. <Jonathan Catherine - Last Filed: 07/28/18 15:26> Objective - Vital Signs/Intake and Output Vital Signs (last 24 hours): Temp Pulse Resp BP Pulse Ox 97.8 F 61 18 160/105 H 98 07/28/18 06:00 07/28/18 08:40 07/28/18 06:00 07/28/18 08:40 07/28/18 06:00 Intake and Output: 07/28/18 07/28/18 06:59 18:59 Intake Total 1345 Balance 1345 - Medications Medications: Current Medications Amylase (Pancrease 41119 U-5000 U-28286 U) 35,000 unit PO AC [facility] Sodium Chloride (Sodium Chloride 0.9%) 1,000 mls @ 75 mls/hr IV .[id number] [facility] Last Admin: 07/28/18 14:42 Dose: 75 mls/hr Lisinopril (Zestril) 30 mg PO DAILY [facility] Morphine Sulfate (Morphine) 1 mg IVP Q6H PRN PRN Reason: Pain, moderate (4-7) Last Admin: 07/28/18 12:25 Dose: 1 mg Ondansetron HCl (Zofran Inj) 4 mg IVP Q4H PRN PRN Reason: Nausea/Vomiting Pantoprazole Sodium (Protonix Ec Tab) 40 mg PO 0600 [facility] - Labs Labs: 07/28/18 06:00 07/28/18 06:00 Attending/Attestation - Attestation I have personally seen and examined this patient.: Yes I have fully participated in the care of the patient.: Yes I have reviewed all pertinent clinical information, including history, physical exam and plan: Yes Notes (Text): 07/28/18 15:24 53 year old female with past medical history of hypertension and pancreatic divisum s/p pancreatic stent (2004) who presents with complaint of epigastric-R UQ pain and nausea/vomiting/diarrhea; ?acute gastroenteritis vs chronic pancreatitis. CT abd/pelvis showed mild intrahepatic biliary ductal dilatation, moderate dilatation of the common bile duct and pancreatic duct; scattered pancreatic calcifications likely related to chronic pancreatitis, no cho lelithiasis. LFTs and lipase are normal. GI evaluation was appreciated who ordered for MRCP and pancreatitis enzymes. Nausea/vomiting/diarrhea symptoms improved. Continue with diet as tolerated. Lisinopril dose was increased for hypertension. Jonathan Catherine MD Hospitalist.
[2018-07-28] MEDS ORDERED: Gadodiamide 287 MG/ML VIAL (15ML) IV ONE (15:35)
[2018-07-28 16:10] LABS: IMMUNOGLOBULIN G 892.9 mg/dL (700.0-1600.0); IMMUNOGLOBULIN M 279.6 mg/dL (40.0-230.0)
[2018-07-28] MEDS: Amylase/Lipase/Protease 5,000 Units ECC PO SCH (18:11)
[2018-07-28] MEDS ORDERED: Morphine 2 mg/ml ISec IVP STA (22:53)
[2018-07-29] MEDS: Morphine 2 mg/ml ISec IVP PRN ×5 (00:41→22:29)
[2018-07-29] MEDS: Sodium Chloride 0.9% 1,000 ML IV SCH (04:47)
[2018-07-29] MEDS: Pantoprazole 40 mg EC Tab PO SCH (05:20)
[2018-07-29 07:06] LABS: BASO # 0.02 K/mm3 (0.0-2.0); BASO % 0.4 % (0.0-3.0); EOS # 0.1 (0.0-0.7); GRAN # 1.56 (1.4-6.5); GRAN % 33.4 % (50.0-68.0); HEMOGLOBIN 11.6 g/dL (12.0-16.0); LYMPH # 2.4 (1.2-3.4); LYMPH % 51.9 % (22.0-35.0); MEAN CELL VOLUME 89.3 fl (80.0-105.0); MEAN CORPUSCULAR HEMOGLOBIN 29.5 pg (25.0-35.0); MEAN PLATELET VOLUME 10.5 fl (7.0-11.0); MONO # 0.5 (0.1-0.6); MONO % 11.3 % (1.0-6.0); RBC 3.93 10^6/uL (3.5-6.1); RED CELL DISTRIBUTION WIDTH 13.2 % (11.5-14.5); WHITE BLOOD COUNT 4.7 10^3/uL (4.5-11.0)
[2018-07-29 07:34] LABS: ALB/GLOB RATIO 1.2 (1.1-1.8); ALBUMIN 3.4 g/dL (3.0-4.8); ALT/SGPT 25 U/L (7-56); AST/SGOT 22 U/L (14-36); BLOOD UREA NITROGEN 5 mg/dL (7-21); GFR NON-AFRICAN AMERICAN > 60
[2018-07-29] MEDS ORDERED: Potassium Chloride 20 mEq ER Tab PO ONE (07:59)
[2018-07-29] MEDS: Amylase/Lipase/Protease 5,000 Units ECC PO SCH ×3 (10:12→17:28)
--- NOTE | 2018-07-29 12:57 | CP.PCM.PN ---
Subjective - Date & Time of Evaluation Date of Evaluation: 07/29/18 Time of Evaluation: 12:54 - Subjective Subjective: Gastroenterology Fellow/PGY6 Progress Note Patient ambulating next to bed. Notes slight improvement of epigastric pain, pain scale 8 out of 10. Tolerating diet. Denies vomiting or diarrhea. A 12-point review of systems negative except for as above. Objective - Vital Signs/Intake and Output Vital Signs (last 24 hours): Temp Pulse Resp BP Pulse Ox 97.7 F 67 18 147/85 98 07/29/18 06:00 07/29/18 10:05 07/29/18 06:00 07/29/18 10:05 07/29/18 06:00 Intake and Output: 07/29/18 07/29/18 06:59 18:59 Intake Total 1440 Output Total 5 Balance 1435 - Medications Medications: Current Medications Amylase (Pancrease 17071 U-5000 U-66351 U) 35,000 unit PO AC [facility] Last Admin: 07/29/18 10:12 Dose: 35,000 unit Sodium Chloride (Sodium Chloride 0.9%) 1,000 mls @ 75 mls/hr IV .[id number] [facility] Last Admin: 07/29/18 04:47 Dose: 75 mls/hr Lisinopril (Zestril) 30 mg PO DAILY [facility] Last Admin: 07/29/18 10:05 Dose: 30 mg Morphine Sulfate (Morphine) 1 mg IVP Q6H PRN PRN Reason: Pain, moderate (4-7) Last Admin: 07/29/18 12:10 Dose: 1 mg Ondansetron HCl (Zofran Inj) 4 mg IVP Q4H PRN PRN Reason: Nausea/Vomiting Pantoprazole Sodium (Protonix Ec Tab) 40 mg PO 0600 [facility] Last Admin: 07/29/18 05:20 Dose: 40 mg - Labs Labs: 07/29/18 06:15 07/29/18 06:15 - Constitutional Appears: Non-toxic, No Acute Distress - Head Exam Head Exam: ATRAUMATIC, NORMOCEPHALIC - Eye Exam Eye Exam: EOMI, PERRL. absent: Scleral icterus Pupil Exam: PERRL. absent: Miosis, Mydriatic - ENT Exam ENT Exam: Mucous Membranes Moist, Normal Oropharynx - Neck Exam Neck Exam: Full ROM, Normal Inspection - Respiratory Exam Respiratory Exam: Clear to Ausculation Bilateral. absent: Rales, Rhonchi, Wheezes - Cardiovascular Exam Cardiovascular Exam: RRR, +S1, +S2. absent: Gallop, Rubs - GI/Abdominal Exam GI & Abdominal Exam: Soft, Tenderness, Normal Bowel Sounds. absent: Distended, Firm, Guarding, Rigid, Organomegaly, Rebound Additional comments: epigastric tenderness to palpation - Extremities Exam Extremities Exam: Normal Inspection. absent: Pedal Edema - Neurological Exam Neurological Exam: Alert, Awake - Psychiatric Exam Psychiatric exam: Normal Affect, Normal Mood - Skin Skin Exam: Dry, Intact, Normal Color, Warm Assessment and Plan - Assessment and Plan (Free Text) Assessment: 53 year old female with PMH of pancreas divisum, recurrent pancreatitis/chronic pancreatitis, and HTN presenting with one month of intermittent severe epigastric pain. Active treatment of abdominal pain likely secondary to underlying chronic pancreatitis and diarrhea likely 2/2 pancreatic insuffici ency. Plan: -pending MRCP with abdomen w/ w/o contrast to evaluate history of pancreas divisum -pending IgG4, ALEX, AMA -continue Pancrease 98738 Units Lipase with each meal -supportive care- pain control -continue low fat diet -will follow clinical course
--- NOTE | 2018-07-29 13:44 | CP.PCM.PN ---
<Mark Astudillo - Last Filed: 07/30/18 07:26> Subjective - Date & Time of Evaluation Date of Evaluation: 07/29/18 Time of Evaluation: 08:30 - Subjective Subjective: PGY-1 Medicine Progress Note for Dr. Catherine Patient seen and examined at bedside this AM. No acute overnight events reported. Patient endorses improved epigastric abominal pain, continues to c/o RUQ pain with associated nausea and decreased appetite. No fevers/chills, headaches, dizziness, chest pain, palpitations, sob, cough, n/v/d/c, dysuria. Objective - Vital Signs/Intake and Output Vital Signs (last 24 hours): Temp Pulse Resp BP Pulse Ox 97.7 F 67 18 147/85 98 07/29/18 06:00 07/29/18 10:05 07/29/18 06:00 07/29/18 10:05 07/29/18 06:00 Intake and Output: 07/29/18 07/29/18 06:59 18:59 Intake Total 1440 Output Total 5 Balance 1435 - Medications Medications: Current Medications Amylase (Pancrease 40539 U-5000 U-55087 U) 35,000 unit PO AC [facility] Last Admin: 07/29/18 10:12 Dose: 35,000 unit Sodium Chloride (Sodium Chloride 0.9%) 1,000 mls @ 75 mls/hr IV .[id number] [facility] Last Admin: 07/29/18 04:47 Dose: 75 mls/hr Lisinopril (Zestril) 30 mg PO DAILY [facility] Last Admin: 07/29/18 10:05 Dose: 30 mg Morphine Sulfate (Morphine) 1 mg IVP Q6H PRN PRN Reason: Pain, moderate (4-7) Last Admin: 07/29/18 12:10 Dose: 1 mg Ondansetron HCl (Zofran Inj) 4 mg IVP Q4H PRN PRN Reason: Nausea/Vomiting Pantoprazole Sodium (Protonix Ec Tab) 40 mg PO 0600 [facility] Last Admin: 07/29/18 05:20 Dose: 40 mg - Labs Labs: 07/29/18 06:15 07/29/18 06:15 - Constitutional Appears: Non-toxic, No Acute Distress - Head Exam Head Exam: ATRAUMATIC, NORMAL INSPECTION, NORMOCEPHALIC - Eye Exam Eye Exam: EOMI, Normal appearance Pupil Exam: NORMAL ACCOMODATION - ENT Exam ENT Exam: Mucous Membranes Moist, Normal Exam - Neck Exam Neck Exam: Full ROM, Normal Inspection - Respiratory Exam Respiratory Exam: Clear to Ausculation Bilateral, NORMAL BREATHING PATTERN. absent: Accessory Muscle Use, Rales, Rhonchi, Wheezes, Respiratory Distress, Stridor - Cardiovascular Exam Cardiovascular Exam: REGULAR RHYTHM, +S1, +S2 - GI/Abdominal Exam GI & Abdominal Exam: Soft, Tenderness (mild TTP RUQ ), Normal Bowel Sounds. absent: Distended, Firm, Guarding, Rigid, Organomegaly, Rebound - Extremities Exam Extremities Exam: Full ROM, Normal Capillary Refill, Normal Inspection. absent: Calf Tenderness, Joint Swelling, Pedal Edema - Back Exam Back Exam: NORMAL INSPECTION - Neurological Exam Neurological Exam: Alert, Awake, Normal Gait, Oriented x3 - Psychiatric Exam Psychiatric exam: Normal Affect, Normal Mood - Skin Skin Exam: Dry, Intact, Normal Color, Warm Assessment and Plan - Assessment and Plan (Free Text) Assessment: 53 year old female with PMHx of HTN, pancreatic divisum with pancreatic stent placement in 2004, tubal ligation, R-ovarian cyst removal, GI bleed, presented to the ED complaining of constant epigastric and RUQ abdominal pain associated with nausea, vomiting, and diarrhea for the past week likely due to chronic pancreatitis. Patient was evaluated by the medical team. GI was consulted. Plan: Epigastric/RUQ abdominal pain due to likely chronic pancreatitis - pt has history of questionable pancreatic divisum with stent placement 2004 -LFTs, lipase wnl - Urine drug screen is +opiates; EtOH level negative - diet advanced to low fat, soft HHD - CT abdomen/pelvis: Mild intrahepatic biliary ductal dilatation. Moderate dilatation of the common bile duct and pancreatic duct. Scattered pancreatic calcifications likely related to chronic pancreatitis. No bowel dilatation or obstruction. No cholelithiasis. -GI recs (Dr. Mullins) appreciated -MRCP with abdomen w/ w/o contrast: no acute intra-abdominal findings; dilated pancreatic duct measuring 4mm; pancreatic divisum variation with main duct emptying into duodenum at minor papilla. The smaller ventral duct joins with the common duct at the ampulla. -pending IgG4, ALEX, AMA -continue Pancrease 68171 Units Lipase with each meal -supportive care- pain control -continue low fat diet -will follow clinical course - c/w morphine 1 mg q6 prn for pain control - c/w zofran 4mg IVP q4 prn for nausea Hx of HTN - Lisinopril 30mg PO daily - Asymptomatic; no complaints of cp or palpitations - monitor BP PPx, Diet, Disposition -GI ppx: protonix -Diet: soft, low fat HHD -Dispo: awaiting GI clearance; continue to monitor advancement of diet Case discussed with Dr. Florin Astudillo DO, PGY-1 <Jonathan Catherine - Last Filed: 07/30/18 07:33> Objective - Vital Signs/Intake and Output Vital Signs (last 24 hours): Temp Pulse Resp BP Pulse Ox 97.6 F 56 L 20 158/92 H 97 07/30/18 06:00 07/30/18 06:00 07/30/18 06:00 07/30/18 06:00 07/30/18 06:00 Intake and Output: 07/30/18 07/30/18 06:59 18:59 Intake Total 240 Balance 240 - Medications Medications: Current Medications Amylase (Pancrease 25629 U-5000 U-68564 U) 35,000 unit PO AC [facility] Last Admin: 07/29/18 17:28 Dose: 35,000 unit Sodium Chloride (Sodium Chloride 0.9%) 1,000 mls @ 75 mls/hr IV .[id number] [facility] Last Admin: 07/29/18 04:47 Dose: 75 mls/hr Lisinopril (Zestril) 30 mg PO DAILY [facility] Last Admin: 07/29/18 10:05 Dose: 30 mg Morphine Sulfate (Morphine) 1 mg IVP Q6H PRN PRN Reason: Pain, moderate (4-7) Last Admin: 07/30/18 04:38 Dose: 1 mg Ondansetron HCl (Zofran Inj) 4 mg IVP Q4H PRN PRN Reason: Nausea/Vomiting Pantoprazole Sodium (Protonix Ec Tab) 40 mg PO 0600 [facility] Last Admin: 07/30/18 05:03 Dose: 40 mg - Labs Labs: 07/30/18 06:00 07/30/18 06:00 Attending/Attestation - Attestation I have personally seen and examined this patient.: Yes I have fully participated in the care of the patient.: Yes I have reviewed all pertinent clinical information, including history, physical exam and plan: Yes Notes (Text): 07/29/18 53 year old female with past medical history of hypertension and pancreatic divisum s/p pancreatic stent (2004) who presents with complaint of epigastric- RUQ pain and nausea/vomiting/diarrhea; ?acute gastroenteritis vs chronic pancreatitis. CT abd/pelvis showed mild intrahepatic biliary ductal dilatation, moderate dilatation of the common bile duct and pancreatic duct; scattered pancreatic calcifications likely related to chronic pancreatitis, no cholelithiasis. LFTs and lipase are normal. MRCP was obtained which showed no acute intra-abdominal findings; dilated pancreatic duct measuring 4mm; pancreatic divisum variation with main duct emptying into duodenum at minor papilla; the smaller ventral duct joins with the common duct at the ampulla. Will advance diet today. She is started on pancreatic enzymes. Lisinopril dose was increased for hypertension. Will replete and repeat lytes (potassium). D/c planning within 24 hrs if patient is tolerating diet and if no further GI intervention planned. Jnoathan Catherine MD Hospitalist.
--- NOTE | 2018-07-29 14:55 | MRI ---
Date of service: 07/28/2018 PROCEDURE: MRI Abdomen with and without contrast plus MRCP imaging HISTORY: Recurrent pancreatitis. Rule out pancreatic divisum COMPARISON: None available. TECHNIQUE: Multisequence, multiplanar MR images of the abdomen with and without gadolinium contrast enhancement. 15 cc of Omniscan FINDINGS: LIVER: Unremarkable. GALLBLADDER: Unremarkable. The common duct measures 7 mm in diameter and shows a normal tapering appearance SPLEEN: Unremarkable. PANCREAS: The pancreatic duct is dilated throughout its length measuring 4 mm. There is a pancreatic divisum variation with the main pancreatic duct emptying into the duodenum at the minor papilla. The smaller ventral duct joins with the common duct at the ampulla. ADRENALS: Unremarkable. KIDNEYS: Unremarkable. AORTA: No aneurysm. ASCITES: None. PERITONEUM: Unremarkable. LYMPH NODES: Unremarkable. OTHER FINDINGS: No enhancing abnormalities IMPRESSION: The pancreatic duct is dilated throughout its length measuring 4 mm. There is a pancreatic divisum variation with the main pancreatic duct emptying into the duodenum at the minor papilla. The smaller ventral duct joins with the common duct at the ampulla. No acute intra-abdominal findings
--- NOTE | 2018-07-29 16:19 | CP.PCM.DIS ---
Provider - Provider Date of Admission: 07/27/18 14:40 Attending physician: Jonathan Catherine MD Time Spent in preparation of Discharge (in minutes): 40 Hospital Course - Lab Results Lab Results: Most Recent Lab Values WBC 4.7 10^3/uL (4.5-11.0) 07/29/18 06:15 RBC 3.93 10^6/uL (3.5-6.1) 07/29/18 06:15 Hgb 11.6 g/dL (12.0-16.0) L 07/29/18 06:15 Hct 35.1 % (36.0-48.0) L 07/29/18 06:15 MCV 89.3 fl (80.0-105.0) 07/29/18 06:15 MCH 29.5 pg (25.0-35.0) 07/29/18 06:15 MCHC 33.0 g/dl (31.0-37.0) 07/29/18 06:15 RDW 13.2 % (11.5-14.5) 07/29/18 06:15 Plt Count 158 10^3/uL (120.0-450.0) 07/29/18 06:15 MPV 10.5 fl (7.0-11.0) 07/29/18 06:15 Gran % 33.4 % (50.0-68.0) L 07/29/18 06:15 Lymph % (Auto) 51.9 % (22.0-35.0) H 07/29/18 06:15 [place] % (Auto) 11.3 % (1.0-6.0) H 07/29/18 06:15 Eos % (Auto) 3.0 % (1.5-5.0) 07/29/18 06:15 Baso % (Auto) 0.4 % (0.0-3.0) 07/29/18 06:15 Gran # 1.56 (1.4-6.5) 07/29/18 06:15 Lymph # (Auto) 2.4 (1.2-3.4) 07/29/18 06:15 [place] # (Auto) 0.5 (0.1-0.6) 07/29/18 06:15 Eos # (Auto) 0.1 (0.0-0.7) 07/29/18 06:15 Baso # (Auto) 0.02 K/mm3 (0.0-2.0) 07/29/18 06:15 Sodium 143 mmol/L (132-148) 07/29/18 06:15 Potassium 3.4 mmol/L (3.6-5.0) L 07/29/18 06:15 Chloride 110 mmol/L (98-107) H 07/29/18 06:15 Carbon Dioxide 27 mmol/L (21-33) 07/29/18 06:15 Anion Gap 10 (10-20) 07/29/18 06:15 BUN 5 mg/dL (7-21) L 07/29/18 06:15 Creatinine 0.6 mg/dl (0.7-1.2) L 07/29/18 06:15 Est GFR ( Amer) > 60 07/29/18 06:15 Est GFR (Non-Af Amer) > 60 07/29/18 06:15 POC Glucose (mg/dL) 132 mg/dL (65-110) H 07/28/18 21:19 Random Glucose 89 mg/dL (70-110) 07/29/18 06:15 Calcium 9.0 mg/dL (8.4-10.5) 07/29/18 06:15 Phosphorus 3.7 mg/dL (2.5-4.5) 07/27/18 11:00 Magnesium 2.4 mg/dL (1.7-2.2) H 07/27/18 11:00 Total Bilirubin 0.3 mg/dL (0.2-1.3) 07/29/18 06:15 AST 22 U/L (14-36) 07/29/18 06:15 ALT 25 U/L (7-56) 07/29/18 06:15 Alkaline Phosphatase 84 U/L (38-126) 07/29/18 06:15 Troponin I < 0.01 ng/mL 07/27/18 11:00 Total Protein 6.4 g/dL (5.8-8.3) 07/29/18 06:15 Albumin 3.4 g/dL (3.0-4.8) 07/29/18 06:15 Globulin 2.9 gm/dL 07/29/18 06:15 Albumin/Globulin Ratio 1.2 (1.1-1.8) 07/29/18 06:15 Lipase 130 U/L (23-300) 07/27/18 11:00 Urine Opiates Screen Positive (NEGATIVE) H 07/27/18 11:00 Urine Methadone Screen Negative (NEGATIVE) 07/27/18 11:00 Ur Barbiturates Screen Negative (NEGATIVE) 07/27/18 11:00 Ur Phencyclidine Scrn Negative (NEGATIVE) 07/27/18 11:00 Ur Amphetamines Screen Negative (NEGATIVE) 07/27/18 11:00 U Benzodiazepines Scrn Negative (NEGATIVE) 07/27/18 11:00 U Oth Cocaine Metabols Negative (NEGATIVE) 07/27/18 11:00 U Cannabinoids Screen Negative (NEGATIVE) 07/27/18 11:00 Alcohol, Quantitative < 10 mg/dL (0-10) 07/27/18 11:00 IgG 892.9 mg/dL (700.0-1600.0) 07/28/18 06:00 IgM 279.6 mg/dL (40.0-230.0) H 07/28/18 06:00 Anti-Mitochondrial Ab Negative (Negative) 07/28/18 06:00 - Hospital Course Hospital Course: HPI: Patient is a 53 year old female with past medical history of hypertension, pancreatic divisum with pancreatic stent placement in 2004, tubal ligation, R- ovarian cyst removal, GI bleed, presented to the ED complaining of constant RUQ abdominal pain associated with nausea, vomiting, and diarrhea for the past week. In the ED, Vitals: T 97.7, HR 70, BP 163/113 RR 18 SaO2 98% (room air). Patient given morphine for pain control, started on IV fluids, and given zofran for nausea. Patient's labs were unremarkable except for K 3.4. Troponins negative x1. Lipase negative. CT abdomen ordered. EKG showed normal sinus rhythm at 78 beats per minute with no ST or T wave changes. Patient examined by the medical team. Patient last vomited yesterday, it was yellow in color. Diarrhea is 2-3 times a day. It is associated with abdominal pain x1 week duration. Pain is epigastric, right upper quadrant, that radiates to the back. Denies fever, chills, chest pain, shortness of breath, urinary symptoms, back pain, neck pain, headache, dizziness, F/U/D. Denies sick contacts and recent travel hx. Patient said she was previously admitted to a hospital in [place], [place] or [facility] (patient does not remember) for similar complains approximately one month ago and was discharged after one day. During the course of admission: Liver function tests and lipase levels obtained were within normal limits. CT abdomen/pelvis obtained demonstrated mild intrahepatic biliary ductal dilatation, moderate dilatation of the common bile duct and pancreatic duct, and scattered pancreatic calcifications likely related to chronic pancreatitis. No bowel dilatation or obstruction were noted, nor any cholelithiasis. GI (Dr. Mullins) was consulted, who recommended MRCP of the abdomen with and without contrast for further insight into patient's history of pancreatic divisum. MRCP demonstrated no acute intra-abdominal findings; dilated pancreatic duct measuring 4mm; pancreatic divisum variation with main duct emptying into duodenum at minor papilla. The smaller ventral duct joins with the common duct at the ampulla. Autoimmune workup was also ordered and patient was given morphine for pain control. Pancreatic enzymes were also provided with each meal. Patient's diet was advanced from clear liquid to soft diet and patient tolerated well. No new episodes of vomiting, diarrhea, or constipation were noted during the course of admission. Patient remained afebrile during course of admission, with no leukocytosis noted. Patient tolerated advancement of diet well and endorses improvement of her abdominal pain. Patient is medically stable for discharge to home, as per Dr. Catherine. Patient is instructed to continue taking lisinopril as prescribed. Script has been provided. Please follow up within 1 week of discharge at [facility] for continued care and management. Contact information has been provided below: [facility] [address] [place] [address] If symptoms worsen, please return to the ED for further care. The following is a summary of hospital course. For full detail, please refer to EMR. - Date & Time of H&P Date of H&P: 07/29/18 Time of H&P: 16:06 Discharge Exam - Head Exam Head Exam: ATRAUMATIC, NORMAL INSPECTION, NORMOCEPHALIC - Eye Exam Eye Exam: EOMI, Normal appearance Pupil Exam: NORMAL ACCOMODATION - ENT Exam ENT Exam: Mucous Membranes Moist, Normal Exam - Respiratory Exam Respiratory Exam: Clear to PA & Lateral, NORMAL BREATHING PATTERN, UNREMARKABLE. absent: Accessory Muscle Use, Rales, Rhonchi, Wheezes, Respiratory Distress, Stridor - Cardiovascular Exam Cardiovascular Exam: REGULAR RHYTHM, +S1, +S2 - GI/Abdominal Exam GI & Abdominal Exam: Normal Bowel Sounds, Soft, Unremarkable. absent: Distended, Firm, Guarding, Hernia, Rebound, Rigid, Tenderness - Extremities Exam Extremities exam: full ROM, normal capillary refill, normal inspection, pedal pulses present - Back Exam Back exam: NORMAL INSPECTION - Neurological Exam Neurological exam: Alert, CN II-XII Intact, Normal Gait, Oriented x3 - Psychiatric Exam Psychiatric exam: Normal Affect, Normal Mood - Skin Skin Exam: Dry, Intact, Normal Color, Warm Discharge Plan - Discharge Medications Prescriptions: Lisinopril 30 mg PO DAILY #30 tablet - Follow Up Plan Condition: STABLE Disposition: HOME/ ROUTINE Additional Instructions: Patient is medically stable for discharge to home, as per Dr. Catherine. Patient is instructed to continue taking lisinopril as prescribed. Script has been provided. Please follow up within 1 week of discharge at [facility] for continued care and management. Contact information has been provided below: [facility] [address] [place] [address] If symptoms worsen, please return to the ED for further care. Referrals: PCP,NO [Family Provider] - Clinic,Med Surg [Non-Staff] -
[2018-07-29 17:07] VITALS: PULSE 56; RESP 20
[2018-07-30] MEDS: Morphine 2 mg/ml ISec IVP PRN ×2 (04:38→10:17)
[2018-07-30] MEDS: Pantoprazole 40 mg EC Tab PO SCH (05:03)
[2018-07-30 06:46] LABS: BASO # 0.03 K/mm3 (0.0-2.0); BASO % 0.5 % (0.0-3.0); EOS # 0.2 (0.0-0.7); EOS % 3.8 % (1.5-5.0); GRAN # 2.21 (1.4-6.5); HEMOGLOBIN 12.3 g/dL (12.0-16.0); LYMPH # 2.6 (1.2-3.4); LYMPH % 46.6 % (22.0-35.0); MEAN CELL VOLUME 88.4 fl (80.0-105.0); MEAN CORPUSCULAR HEMOGLOBIN 29.7 pg (25.0-35.0); MEAN CORPUSCULAR HGB CONC 33.6 g/dl (31.0-37.0); MEAN PLATELET VOLUME 10.9 fl (7.0-11.0); MONO # 0.5 (0.1-0.6); MONO % 9.1 % (1.0-6.0); RBC 4.14 10^6/uL (3.5-6.1); RED CELL DISTRIBUTION WIDTH 12.9 % (11.5-14.5); WHITE BLOOD COUNT 5.5 10^3/uL (4.5-11.0)
[2018-07-30 06:52] VITALS: BP 158/92; TEMP 97.6; O2SAT 97
[2018-07-30 07:10] LABS: ALB/GLOB RATIO 1.2 (1.1-1.8); ALBUMIN 3.5 g/dL (3.0-4.8); ALT/SGPT 19 U/L (7-56); AST/SGOT 20 U/L (14-36); BLOOD UREA NITROGEN 17 mg/dL (7-21); GFR NON-AFRICAN AMERICAN > 60
[2018-07-30] MEDS: Amylase/Lipase/Protease 5,000 Units ECC PO SCH (08:33)
--- NOTE | 2018-07-30 08:43 | CP.PCM.PN ---
<Leticia Reno - Last Filed: 07/30/18 08:39> Subjective - Date & Time of Evaluation Date of Evaluation: 07/30/18 Time of Evaluation: 08:39 - Subjective Subjective: Gastroenterology Fellow/PGY6 Progress Note Patient resting comfortably. Notes improved abdominal pain. Tolerated diet without vomiting. A 12-point review of systems negative except for as above. Objective - Vital Signs/Intake and Output Vital Signs (last 24 hours): Temp Pulse Resp BP Pulse Ox 97.6 F 56 L 20 158/92 H 97 07/30/18 06:00 07/30/18 06:00 07/30/18 06:00 07/30/18 06:00 07/30/18 06:00 Intake and Output: 07/30/18 07/30/18 06:59 18:59 Intake Total 240 Balance 240 - Medications Medications: Current Medications Amylase (Pancrease 25925 U-5000 U-71028 U) 35,000 unit PO AC [facility] Last Admin: 07/29/18 17:28 Dose: 35,000 unit Sodium Chloride (Sodium Chloride 0.9%) 1,000 mls @ 75 mls/hr IV .[id number] [facility] Last Admin: 07/29/18 04:47 Dose: 75 mls/hr Lisinopril (Zestril) 30 mg PO DAILY [facility] Last Admin: 07/29/18 10:05 Dose: 30 mg Morphine Sulfate (Morphine) 1 mg IVP Q6H PRN PRN Reason: Pain, moderate (4-7) Last Admin: 07/30/18 04:38 Dose: 1 mg Ondansetron HCl (Zofran Inj) 4 mg IVP Q4H PRN PRN Reason: Nausea/Vomiting Pantoprazole Sodium (Protonix Ec Tab) 40 mg PO 0600 [facility] Last Admin: 07/30/18 05:03 Dose: 40 mg - Labs Labs: 07/30/18 06:00 07/30/18 06:00 - Constitutional Appears: Non-toxic, No Acute Distress - Head Exam Head Exam: ATRAUMATIC, NORMOCEPHALIC - Eye Exam Eye Exam: EOMI, PERRL. absent: Scleral icterus Pupil Exam: PERRL. absent: Miosis, Mydriatic - ENT Exam ENT Exam: Mucous Membranes Moist, Normal Oropharynx - Neck Exam Neck Exam: Full ROM, Normal Inspection - Respiratory Exam Respiratory Exam: Clear to Ausculation Bilateral. absent: Rales, Rhonchi, Wheezes - Cardiovascular Exam Cardiovascular Exam: RRR, +S1, +S2. absent: Gallop, Rubs - GI/Abdominal Exam GI & Abdominal Exam: Soft, Normal Bowel Sounds. absent: Distended, Firm, Guarding, Rigid, Tenderness, Organomegaly, Rebound - Extremities Exam Extremities Exam: Normal Inspection. absent: Pedal Edema - Neurological Exam Neurological Exam: Alert, Awake - Psychiatric Exam Psychiatric exam: Normal Affect, Normal Mood - Skin Skin Exam: Dry, Intact, Normal Color, Warm Assessment and Plan - Assessment and Plan (Free Text) Assessment: 53 year old female with PMH of pancreas divisum, recurrent pancreatitis/chronic pancreatitis, and HTN presenting with one month of intermittent severe epigastric pain. Active treatment of abdominal pain secondary chronic pancreatitis and resolved diarrhea 2/2 pancreatic insufficiency. Plan: -MRCP with abdomen showing pancreatic duct dilation, pancreas divisum emptying into duodenum at minor papilla, smaller ventral duct joins CBD at ampulla -no signs of choledocholithiasis -pending IgG4, ALEX -AMA negative -continue Pancrease 22404 Units Lipase with each meal -continue low fat diet -outpatient follow up recommended with tertiary care center, such as [facility] for only biliary management <Xi Mullins V - Last Filed: 07/31/18 00:02> Objective - Vital Signs/Intake and Output Vital Signs (last 24 hours): Temp Pulse Resp BP Pulse Ox 97.6 F 56 L 20 158/92 H 97 07/30/18 06:00 07/30/18 09:32 07/30/18 06:00 07/30/18 09:32 07/30/18 06:00 - Labs Labs: 07/30/18 06:00 07/30/18 06:00 Attending/Attestation - Attestation I have personally seen and examined this patient.: Yes I have fully participated in the care of the patient.: Yes I have reviewed all pertinent clinical information, including history, physical exam and plan: Yes Notes (Text): This is an addendum to GI progress report dictated by the GI Fellow.The patient was seen and examined earlier. Medical records, lab studies, imagings were reviewed. Last 24 hours events reviewed. Agreed with the above treatment plan as outlined in GI Fellow 's notes with the addition of the following 07/31/18 00:02
[2018-07-30] MEDS: Sodium Chloride 0.9% 1,000 ML IV SCH (09:20)
--- NOTE | 2018-07-30 11:38 | CP.PCM.DIS ---
<Mark Astudillo - Last Filed: 07/30/18 15:33> Provider - Provider Date of Admission: 07/27/18 14:40 Attending physician: Jonathan Catherine MD Time Spent in preparation of Discharge (in minutes): 40 Hospital Course - Lab Results Lab Results: Most Recent Lab Values WBC 5.5 10^3/uL (4.5-11.0) 07/30/18 06:00 RBC 4.14 10^6/uL (3.5-6.1) 07/30/18 06:00 Hgb 12.3 g/dL (12.0-16.0) 07/30/18 06:00 Hct 36.6 % (36.0-48.0) 07/30/18 06:00 MCV 88.4 fl (80.0-105.0) 07/30/18 06:00 MCH 29.7 pg (25.0-35.0) 07/30/18 06:00 MCHC 33.6 g/dl (31.0-37.0) 07/30/18 06:00 RDW 12.9 % (11.5-14.5) 07/30/18 06:00 Plt Count 169 10^3/uL (120.0-450.0) 07/30/18 06:00 MPV 10.9 fl (7.0-11.0) 07/30/18 06:00 Gran % 40.0 % (50.0-68.0) L 07/30/18 06:00 Lymph % (Auto) 46.6 % (22.0-35.0) H 07/30/18 06:00 [place] % (Auto) 9.1 % (1.0-6.0) H 07/30/18 06:00 Eos % (Auto) 3.8 % (1.5-5.0) 07/30/18 06:00 Baso % (Auto) 0.5 % (0.0-3.0) 07/30/18 06:00 Gran # 2.21 (1.4-6.5) 07/30/18 06:00 Lymph # (Auto) 2.6 (1.2-3.4) 07/30/18 06:00 [place] # (Auto) 0.5 (0.1-0.6) 07/30/18 06:00 Eos # (Auto) 0.2 (0.0-0.7) 07/30/18 06:00 Baso # (Auto) 0.03 K/mm3 (0.0-2.0) 07/30/18 06:00 Sodium 143 mmol/L (132-148) 07/30/18 06:00 Potassium 3.6 mmol/L (3.6-5.0) 07/30/18 06:00 Chloride 107 mmol/L (98-107) 07/30/18 06:00 Carbon Dioxide 29 mmol/L (21-33) 07/30/18 06:00 Anion Gap 11 (10-20) 07/30/18 06:00 BUN 17 mg/dL (7-21) 07/30/18 06:00 Creatinine 0.8 mg/dl (0.7-1.2) 07/30/18 06:00 Est GFR ( Amer) > 60 07/30/18 06:00 Est GFR (Non-Af Amer) > 60 07/30/18 06:00 POC Glucose (mg/dL) 132 mg/dL (65-110) H 07/28/18 21:19 Random Glucose 92 mg/dL (70-110) 07/30/18 06:00 Calcium 9.0 mg/dL (8.4-10.5) 07/30/18 06:00 Phosphorus 3.7 mg/dL (2.5-4.5) 07/27/18 11:00 Magnesium 2.4 mg/dL (1.7-2.2) H 07/27/18 11:00 Total Bilirubin 0.1 mg/dL (0.2-1.3) L 07/30/18 06:00 AST 20 U/L (14-36) 07/30/18 06:00 ALT 19 U/L (7-56) 07/30/18 06:00 Alkaline Phosphatase 93 U/L (38-126) 07/30/18 06:00 Troponin I < 0.01 ng/mL 07/27/18 11:00 Total Protein 6.5 g/dL (5.8-8.3) 07/30/18 06:00 Albumin 3.5 g/dL (3.0-4.8) 07/30/18 06:00 Globulin 3.0 gm/dL 07/30/18 06:00 Albumin/Globulin Ratio 1.2 (1.1-1.8) 07/30/18 06:00 Lipase 130 U/L (23-300) 07/27/18 11:00 Urine Opiates Screen Positive (NEGATIVE) H 07/27/18 11:00 Urine Methadone Screen Negative (NEGATIVE) 07/27/18 11:00 Ur Barbiturates Screen Negative (NEGATIVE) 07/27/18 11:00 Ur Phencyclidine Scrn Negative (NEGATIVE) 07/27/18 11:00 Ur Amphetamines Screen Negative (NEGATIVE) 07/27/18 11:00 U Benzodiazepines Scrn Negative (NEGATIVE) 07/27/18 11:00 U Oth Cocaine Metabols Negative (NEGATIVE) 07/27/18 11:00 U Cannabinoids Screen Negative (NEGATIVE) 07/27/18 11:00 Alcohol, Quantitative < 10 mg/dL (0-10) 07/27/18 11:00 IgG 892.9 mg/dL (700.0-1600.0) 07/28/18 06:00 IgM 279.6 mg/dL (40.0-230.0) H 07/28/18 06:00 Anti-Mitochondrial Ab Negative (Negative) 07/28/18 06:00 - Hospital Course Hospital Course: HPI: Patient is a 53 year old female with past medical history of hypertension, panc reatic divisum with pancreatic stent placement in 2004, tubal ligation, R- ovarian cyst removal, GI bleed, presented to the ED complaining of constant RUQ abdominal pain associated with nausea, vomiting, and diarrhea for the past week. In the ED, Vitals: T 97.7, HR 70, BP 163/113 RR 18 SaO2 98% (room air). Patient given morphine for pain control, started on IV fluids, and given zofran for nausea. Patient's labs were unremarkable except for K 3.4. Troponins negative x1. Lipase negative. CT abdomen ordered. EKG showed normal sinus rhythm at 78 beats per minute with no ST or T wave changes. Patient examined by the medical team. Patient last vomited yesterday, it was yellow in color. Diarrhea is 2-3 times a day. It is associated with abdominal pain x1 week duration. Pain is epigastric, right upper quadrant, that radiates to the back. Denies fever, chills, chest pain, shortness of breath, urinary symptoms, back pain, neck pain, headache, dizziness, F/U/D. Denies sick contacts and recent travel hx. Patient said she was previously admitted to a hospital in [place], [place] or [facility] (patient does not remember) for similar complains approximately one month ago and was discharged after one day. During the course of admission: Liver function tests and lipase levels obtained were within normal limits. CT abdomen/pelvis obtained demonstrated mild intrahepatic biliary ductal dilatation, moderate dilatation of the common bile duct and pancreatic duct, and scattered pancreatic calcifications likely related to chronic pancreatitis. No bowel dilatation or obstruction were noted, nor any cholelithiasis. GI (Dr. Mullins) was consulted, who recommended MRCP of the abdomen with and without contrast for further insight into patient's history of pancreatic divisum. MRCP demonstrated no acute intra-abdominal findings; dilated pancreatic duct measuring 4mm; pancreatic divisum variation with main duct emptying into duodenum at minor papilla. The smaller ventral duct joins with the common duct at the ampulla. Autoimmune workup was also ordered and patient was given morphine for pain control. Pancreatic enzymes were also provided with each meal. Patient's diet was advanced from clear liquid to soft diet and patient tolerated well. No new episodes of vomiting, diarrhea, or constipation were noted during the course of admission. Patient remained afebrile during course of admission, with no leukocytosis noted. Patient tolerated advancement of diet well and endorses improvement of her abdominal pain. Patient is medically stable for discharge to home, as per Dr. Catherine. Patient is instructed to take medications as prescribed. Scripts have been provided. Please follow up within 1 week of discharge at [facility] for continued care and management. Contact information has been provided below: [facility] [address] [place] [address] Patient is also advised to follow up at a tertiary care center, such as [facility] for biliary management, as per GI recommendations. Patient has been provided copy of MRCP report. If symptoms worsen, please return to the ED for further care. - Date & Time of H&P Date of H&P: 07/30/18 Time of H&P: 11:36 Discharge Exam - Head Exam Head Exam: ATRAUMATIC, NORMAL INSPECTION, NORMOCEPHALIC - Eye Exam Eye Exam: EOMI, Normal appearance, PERRL - ENT Exam ENT Exam: Mucous Membranes Moist, Normal Exam - Respiratory Exam Respiratory Exam: Clear to PA & Lateral, NORMAL BREATHING PATTERN, UNREMARKABLE. absent: Accessory Muscle Use, Rales, Rhonchi, Wheezes, Respiratory Distress, Stridor - Cardiovascular Exam Cardiovascular Exam: REGULAR RHYTHM, +S1, +S2 - GI/Abdominal Exam GI & Abdominal Exam: Normal Bowel Sounds, Soft, Unremarkable. absent: Distended, Firm, Guarding, Rebound, Rigid - Extremities Exam Extremities exam: full ROM, normal capillary refill, normal inspection, pedal pulses present - Back Exam Back exam: NORMAL INSPECTION - Neurological Exam Neurological exam: Alert, CN II-XII Intact, Normal Gait, Oriented x3 - Psychiatric Exam Psychiatric exam: Normal Affect, Normal Mood - Skin Skin Exam: Dry, Intact, Normal Color, Warm Discharge Plan - Discharge Medications Prescriptions: Amylase/Lipase/Protease [Pancrease 42561 [id number] [id number] U] 35,000 unit PO AC #14 ecc Lisinopril 30 mg PO DAILY #30 tablet Pantoprazole [Protonix EC Tab] 40 mg PO 0600 #30 ect - Follow Up Plan Condition: STABLE Disposition: HOME/ ROUTINE Instructions: Acute Abdomen (Belly Pain), Adult ([place]) Additional Instructions: Patient is medically stable for discharge to home, as per Dr. Catherine. Patient is instructed to take medications as prescribed. Scripts have been provided. Please follow up within 1 week of discharge at [facility] for continued care and management. Contact information has been provided below: [facility] [address] [place] [address] Patient is also advised to follow up at a tertiary care center, such as [facility] for biliary management, as per GI recommendations. Patient has been provided copy of MRCP report. If symptoms worsen, please return to the ED for further care. Referrals: Clinic,Med Surg [Non-Staff] - PCP,NO [Family Provider] - <Jonathan Catherine - Last Filed: 07/30/18 16:09> Provider - Provider Date of Admission: 07/27/18 14:40 Attending physician: Jonathan Catherine MD Hospital Course - Lab Results Lab Results: Most Recent Lab Values WBC 5.5 10^3/uL (4.5-11.0) 07/30/18 06:00 RBC 4.14 10^6/uL (3.5-6.1) 07/30/18 06:00 Hgb 12.3 g/dL (12.0-16.0) 07/30/18 06:00 Hct 36.6 % (36.0-48.0) 07/30/18 06:00 MCV 88.4 fl (80.0-105.0) 07/30/18 06:00 MCH 29.7 pg (25.0-35.0) 07/30/18 06:00 MCHC 33.6 g/dl (31.0-37.0) 07/30/18 06:00 RDW 12.9 % (11.5-14.5) 07/30/18 06:00 Plt Count 169 10^3/uL (120.0-450.0) 07/30/18 06:00 MPV 10.9 fl (7.0-11.0) 07/30/18 06:00 Gran % 40.0 % (50.0-68.0) L 07/30/18 06:00 Lymph % (Auto) 46.6 % (22.0-35.0) H 07/30/18 06:00 [place] % (Auto) 9.1 % (1.0-6.0) H 07/30/18 06:00 Eos % (Auto) 3.8 % (1.5-5.0) 07/30/18 06:00 Baso % (Auto) 0.5 % (0.0-3.0) 07/30/18 06:00 Gran # 2.21 (1.4-6.5) 07/30/18 06:00 Lymph # (Auto) 2.6 (1.2-3.4) 07/30/18 06:00 [place] # (Auto) 0.5 (0.1-0.6) 07/30/18 06:00 Eos # (Auto) 0.2 (0.0-0.7) 07/30/18 06:00 Baso # (Auto) 0.03 K/mm3 (0.0-2.0) 07/30/18 06:00 Sodium 143 mmol/L (132-148) 07/30/18 06:00 Potassium 3.6 mmol/L (3.6-5.0) 07/30/18 06:00 Chloride 107 mmol/L (98-107) 07/30/18 06:00 Carbon Dioxide 29 mmol/L (21-33) 07/30/18 06:00 Anion Gap 11 (10-20) 07/30/18 06:00 BUN 17 mg/dL (7-21) 07/30/18 06:00 Creatinine 0.8 mg/dl (0.7-1.2) 07/30/18 06:00 Est GFR ( Amer) > 60 07/30/18 06:00 Est GFR (Non-Af Amer) > 60 07/30/18 06:00 POC Glucose (mg/dL) 132 mg/dL (65-110) H 07/28/18 21:19 Random Glucose 92 mg/dL (70-110) 07/30/18 06:00 Calcium 9.0 mg/dL (8.4-10.5) 07/30/18 06:00 Phosphorus 3.7 mg/dL (2.5-4.5) 07/27/18 11:00 Magnesium 2.4 mg/dL (1.7-2.2) H 07/27/18 11:00 Total Bilirubin 0.1 mg/dL (0.2-1.3) L 07/30/18 06:00 AST 20 U/L (14-36) 07/30/18 06:00 ALT 19 U/L (7-56) 07/30/18 06:00 Alkaline Phosphatase 93 U/L (38-126) 07/30/18 06:00 Troponin I < 0.01 ng/mL 07/27/18 11:00 Total Protein 6.5 g/dL (5.8-8.3) 07/30/18 06:00 Albumin 3.5 g/dL (3.0-4.8) 07/30/18 06:00 Globulin 3.0 gm/dL 07/30/18 06:00 Albumin/Globulin Ratio 1.2 (1.1-1.8) 07/30/18 06:00 Lipase 130 U/L (23-300) 07/27/18 11:00 Urine Opiates Screen Positive (NEGATIVE) H 07/27/18 11:00 Urine Methadone Screen Negative (NEGATIVE) 07/27/18 11:00 Ur Barbiturates Screen Negative (NEGATIVE) 07/27/18 11:00 Ur Phencyclidine Scrn Negative (NEGATIVE) 07/27/18 11:00 Ur Amphetamines Screen Negative (NEGATIVE) 07/27/18 11:00 U Benzodiazepines Scrn Negative (NEGATIVE) 07/27/18 11:00 U Oth Cocaine Metabols Negative (NEGATIVE) 07/27/18 11:00 U Cannabinoids Screen Negative (NEGATIVE) 07/27/18 11:00 Alcohol, Quantitative < 10 mg/dL (0-10) 07/27/18 11:00 IgG 892.9 mg/dL (700.0-1600.0) 07/28/18 06:00 IgM 279.6 mg/dL (40.0-230.0) H 07/28/18 06:00 Anti-Mitochondrial Ab Negative (Negative) 07/28/18 06:00 Attending/Attestation - Attestation I have personally seen and examined this patient.: Yes I have fully participated in the care of the patient.: Yes I have reviewed all pertinent clinical information, including history, physical exam and plan: Yes Notes (Text): 07/30/18 16:04 53 year old female with past medical history of hypertension and pancreatic divisum s/p pancreatic stent (2004) who presented with complaint of abodminal pain, nausea, vomiting and diarrhea secondary to chronic pancreatitis vs acute gastroenteritis. CT abd/pelvis was obtained which showed mild intrahepatic biliary ductal dilatation, moderate dilatation of the common bile duct and pancreatic duct, and scattered pancreatic calcifications likely related to chronic pancreatitis. MRCP was obtained which showed no acute intra-abdominal findings; dilated pancreatic duct measuring 4mm; pancreatic divisum variation with main duct emptying into duodenum at minor papilla; the smaller ventral duct joins with the common duct at the ampulla. Above findings were discussed with patient and copy of reports were given to her. Her symptoms improved and her diet was advanced. She was seen by GI who recommended outpatient follow up at [facility] GI clinic. Patient is discharged home to follow up at [facility]. Follow up at [facility] GI clinic. Started on pancreatic enzymes. Copy of MRCP report was given to patient to take to her GI/pmd. Jonathan Catherine MD Hospitalist.
== END 2018-07-30 12:26 | disposition home or self-care (01) | DRG 282 ==
LOC: ED 10:10 → ERH 14:40 → 3RSO 17:11
PROVIDERS: ADMIT Hospitalist; ATTEND Internal Medicine
DX: K86.1 Other chronic pancreatitis (principal); I10 Essential (primary) hypertension; F17.210 Nicotine dependence, cigarettes, uncomplicated; K57.30 Diverticulosis of large intestine without perforation or abscess without bleeding; Z80.3 Family history of malignant neoplasm of breast; Z80.41 Family history of malignant neoplasm of ovary; Z83.3 Family history of diabetes mellitus; Z82.49 Family history of ischemic heart disease and other diseases of the circulatory system